=== PATIENT | male | born 1970 | race Two or more races ===

== ENCOUNTER 2016-08-20 16:44 | Emergency (ER) | payer OTHER ==
[~2016-08-20] VITALS: Ht 185.4 cm; Wt 86.2 kg
[2016-08-20 16:49] VITALS: BP 146/89
[2016-08-20] MEDS ORDERED: TDAP [DIPH/PERTUSSIS/TET] 0.5 ML VIAL IM ONE ×2 (16:57→17:00)
[2016-08-20] MEDS ORDERED: NAPROXEN 250 MG TABLET PO STA (16:58)
[2016-08-20] MEDS ORDERED: NAPROXEN 250 MG TABLET ONE (17:05)
== END 2016-08-20 17:50 ==
LOC: ER 16:46
DX: S80.02XA Contusion of left knee, initial encounter (principal); X58.XXXA Exposure to other specified factors, initial encounter; Y93.89 Activity, other specified; Y92.89 Other specified places as the place of occurrence of the external cause; Y99.9 Unspecified external cause status
CPT/HCPCS: 90471; 73564; 90715; 99284; A4606; A6402; Z7610